=== PATIENT | female | born 1945 | race Caucasian/White ===

== ENCOUNTER 2018-01-03 03:02 | Inpatient (IN) | payer MEDICARE ==
[~2018-01-03] VITALS: Ht 157.5 cm; Wt 95.0 kg
[2018-01-03] VITALS (17 sets, daily range): BP systolic 110–174; BP diastolic 48–88
[~2018-01-03 03:02] MED LIST: ATRO2DRO OP; BUPR150T8 PO; CITA-278 PO; GLIP-126 PO; METF500T PO; NORT25CA5 PO; OMEP-84 PO; PRED5DRO7 RIGHTEYE; SIMV20TA5 PO; ZES5T PO; [UNRECOGNIZED DRUG - CODE] PO; [UNRECOGNIZED DRUG - CODE] RC
[2018-01-03] MEDS ORDERED: morphine 4 MG/ML inj SYRINge IV ONE (03:20)
[2018-01-03] MEDS ORDERED: ondansetron/PF 4mg/2ml inj IM ONE (03:20)
[2018-01-03] MEDS ORDERED: ondansetron/PF 4mg/2ml inj IV ONE (04:10)
[2018-01-03 04:21] LABS: BASOPHILS % (AUTO) 0.2 % (0-1); EOSINOPHILS # (AUTO) 0.1 X10'3 (0-0.9); EOSINOPHILS % (AUTO) 0.5 % (0-6); HEMATOCRIT 35.3 % (35.0-45.0); LYMPHOCYTES # (AUTO) 1.7 X10'3 (1.1-4.8); LYMPHOCYTES % (AUTO) 16.4 % (21-51); MEAN CORPUSCULAR HEMOGLOBIN 28.6 PG (27.0-31.0); MEAN CORPUSCULAR HGB CONC 34.1 % (33.0-36.5); MEAN CORPUSCULAR VOLUME 83.9 FL (78-98); MONOCYTES # (AUTO) 0.6 X10'3 (0-0.9); MONOCYTES % (AUTO) 5.8 % (2-12); NEUTROPHILS # (AUTO) 7.9 X10'3 (1.8-7.7); NEUTROPHILS % (AUTO) 77.1 % (42-75); PLATELET COUNT 288 X10'3 (140-440); RED BLOOD COUNT 4.21 X10'6 (4.20-5.60); WHITE BLOOD COUNT 10.2 X10'3 (4.5-11.0)
[2018-01-03] MEDS ORDERED: CLOP75TA35 PO (04:22)
[2018-01-03] MEDS ORDERED: BUPR100T16 PO (04:22)
[2018-01-03] MEDS ORDERED: NORT10CA2 PO (04:22)
[2018-01-03] MEDS ORDERED: LISI10TA4 PO (04:22)
[2018-01-03] MEDS ORDERED: VENL-191 PO (04:22)
[2018-01-03] MEDS ORDERED: ATOR40TA3 PO (04:22)
[2018-01-03] MEDS ORDERED: ALBU18HF2 INH (04:24)
[2018-01-03] MEDS ORDERED: AMYL1CAP62 (04:24)
[2018-01-03] MEDS ORDERED: GLIP5TAB13 (04:26)
[2018-01-03 04:28] LABS: PARTIAL THROMBOPLASTIN TIME 24 SECONDS (22-32)
[2018-01-03 04:31] LABS: ALANINE AMINOTRANSFERASE 28 U/L (12-78); ALBUMIN 2.9 G/DL (3.4-5.0); ALBUMIN/GLOBULIN RATIO 0.8 (1.1-1.5); ALKALINE PHOSPHATASE 152 IU/L (46-116); ANION GAP 12 (8-16); ASPARTATE AMINO TRANSFERASE 20 U/L (10-37); BILIRUBIN,TOTAL 0.4 MG/DL (0.1-1.0); BLOOD UREA NITROGEN 24 MG/DL (7-18); BUN/CREATININE RATIO 20.2 (6.6-38.0); CALCIUM 9.2 MG/DL (8.5-10.1); CHLORIDE 97 MMOL/L (99-107); CREATININE 1.19 MG/DL (0.40-0.90); GLUCOSE 387 MG/DL (70-104); POTASSIUM 3.6 MMOL/L (3.5-5.1); SODIUM 133 MMOL/L (135-145); TOTAL CARBON DIOXIDE 24.2 MMOL/L (24-32); TOTAL PROTEIN 6.6 G/DL (6.4-8.2); eGFR 44 ML/MIN
[2018-01-03] MEDS ORDERED: insulin regular, human 10 units/0.1 ml syringe IV ONE (04:40)
[2018-01-03] MEDS ORDERED: mag hydrox/Alum hydrox/simeth 30ml oral suspension PO PRN (05:10)
[2018-01-03] MEDS ORDERED: acetaminophen 325mg tablet PO PRN ×2 (05:10→14:40)
[2018-01-03] MEDS ORDERED: bisacodyl 10mg suppository rectal RC PRN ×2 (05:10→14:40)
[2018-01-03] MEDS ORDERED: ondansetron/PF 4mg/2ml inj IV PRN ×2 (05:10→14:50)
[2018-01-03] MEDS ORDERED: HYDROcodone/acetaminophen 5mg/325mg tablet PO PRN (05:10)
[2018-01-03] MEDS ORDERED: MESSAGE TO PHARMACY PO ONE (05:40)
[2018-01-03] MEDS ORDERED: dextrose 50%-water 50ml dispensing syringe IV PRN ×2 (05:40)
[2018-01-03] MEDS ORDERED: dextrose ORAL solution 15 GM/59 ML bottle PO PRN ×2 (05:40)
[2018-01-03] MEDS ORDERED: glucagon, human recombinant 1mg kit SUBCUT PRN (05:40)
[2018-01-03] MEDS: morphine 4 MG/ML inj SYRINge IV PRN (06:36)
[2018-01-03] MEDS ORDERED: atropine sulfate 1% ophthalmic drops EACHEYE SCH (08:00)
[2018-01-03] MEDS: atropine sulfate 1% ophthalmic drops RIGHTEYE SCH ×2 (08:00→20:00)
[2018-01-03 08:17] LABS: HEMOGLOBIN A1C 11.4 % (4.5-6.2)
[2018-01-03] MEDS: insulin Lispro (HumaLOG) vial - multi-dose SQ SCH ×2 (10:31→19:19)
[2018-01-03 11:08] LABS: CLARITY,URINE CLOUDY (Clear); COLOR,URINE YELLOW (Yellow); GLUCOSE, URINE >=1000 mg/dl (Neg); KETONES,URINE NEGATIVE (Neg); LEUKOCYTE ESTERASE ,URINE SMALL (Neg); NITRITES, URINE NEGATIVE (Neg); OCCULT BLOOD,URINE SMALL (Neg); PH,URINE 5.5 (4.8-8.0); PROTEIN,URINE 30 mg/dl (Neg); UROBILINOGEN,URINE 0.2 E.U/dL (0.2-1.0)
[2018-01-03] MEDS ORDERED: LIDOcaine 1%/PF (10mg/ml) 5ml vial ONE (11:12)
[2018-01-03 11:13] LABS: UA COLLECTION TYPE CLN CATCH MIDSTREAM
[2018-01-03 11:14] LABS: BACTERIA,URINE 4+ /HPF (Neg); MUCUS STRANDS FEW /LPF (Neg); RBC,URINE 0-2 /HPF (0-2); SQUAMOUS EPITHELIAL CELL,UR FEW /LPF (FEW); WBC,URINE 20-30 /HPF (0-4)
[2018-01-03 11:15] LABS: RENAL CELLS, URINE FEW /HPF
[2018-01-03] MEDS ORDERED: ceFAZolin 1GM/D5W- ADD-VANTAGE 50 ML IV ONE (11:50)
[2018-01-03] MEDS ORDERED: desflurane 240ml liquid inh. IH ONE (12:50)
[2018-01-03] MEDS ORDERED: midazolam 2 mg/2 ml injection ONE (13:07)
[2018-01-03] MEDS ORDERED: fentaNYL /PF 50mcg/ml 5ml ampule ONE (14:06)
[2018-01-03] MEDS ORDERED: LIDOcaine 2% (20mg/ml) 5ml vial ONE (14:06)
[2018-01-03] MEDS ORDERED: rocuronium 10mg/ml inj IV ONE (14:06)
[2018-01-03] MEDS ORDERED: ceFAZolin 1000mg inj ONE ×2 (14:06)
[2018-01-03] MEDS ORDERED: propofol inj 20 ML IV ONE (14:06)
[2018-01-03] MEDS ORDERED: ePHEDrine 50MG/ML INJ. ONE (14:07)
[2018-01-03] MEDS ORDERED: insulin regular, human vial - multi-dose ONE (14:14)
[2018-01-03] MEDS ORDERED: ondansetron/PF 4mg/2ml inj ONE (14:31)
[2018-01-03] MEDS ORDERED: albuterol 60 PUFF/8GM Inhaler IH ONE (14:31)
[2018-01-03] MEDS ORDERED: glycopyrrolate 0.2mg/ml inj ONE (14:31)
[2018-01-03] MEDS ORDERED: neostigmine methylsulfate 1 MG/ML 10ml vial ONE (14:31)
[2018-01-03] MEDS ORDERED: dexamethasone sod phosphate 4mg/ml inj. ONE (14:31)
[2018-01-03] MEDS ORDERED: diphenhydrAMINE 25mg capsule PO PRN (14:40)
[2018-01-03] MEDS ORDERED: magnesium hydroxide 30ml (MOM) UD suspension PO PRN (14:40)
[2018-01-03] MEDS ORDERED: ringers solution, lacted 1,000 ML IV SCH (14:46)
[2018-01-03] MEDS ORDERED: meperidine/PF 25mg/ml syringe IV PRN (14:50)
[2018-01-03] MEDS ORDERED: fentaNYL/PF 50MCG/1 ML 2ML syringe IV PRN ×2 (14:50)
[2018-01-03] MEDS ORDERED: proCHLORperazine 10 MG/2 ml inj IV PRN (14:50)
[2018-01-03] MEDS ORDERED: morphine 4 MG/ML inj SYRINge IV PRN ×2 (14:50)
[2018-01-03] MEDS ORDERED: acetaminophen 1,000mg/100ml IV 100 ML IV PRN (14:50)
[2018-01-03] MEDS ORDERED: albuterol 2.5 MG/3 ML nebule NEB ONE (14:50)
[2018-01-03] MEDS ORDERED: insulin regular, human 10 units/0.1 ml syringe SQ ONE (15:20)
[2018-01-03] MEDS ORDERED: oxyCODONE IR 5mg (immed. release) tablet PO PRN (15:40)
[2018-01-03] MEDS: oxyCODONE IR 5mg (immed. release) tablet PO PRN ×2 (15:55→23:15)
[2018-01-03] MEDS: ceFAZolin 1GM/D5W- ADD-VANTAGE 50 ML IV SCH ×2 (16:39→23:14)
[2018-01-03] MEDS: buPROPion 100mg tablet PO SCH (19:20)
[2018-01-03] MEDS: sennosides 8.6mg tablet PO SCH (20:58)
[2018-01-03] MEDS: nortriptyline 10mg capsule PO SCH (21:01)
[2018-01-03] MEDS: insulin glargine (Lantus) pen - multi-dose SQ SCH (21:22)
[2018-01-03] MEDS: albuterol 2.5 MG/3 ML nebule NEB PRN (23:51)
[2018-01-04 02:00] VITALS: BP 157/75
[2018-01-04] MEDS: albuterol 2.5 MG/3 ML nebule NEB PRN ×2 (04:32→20:27)
[2018-01-04 05:00] VITALS: BP 158/73
[2018-01-04 05:23] LABS: BASOPHILS % (AUTO) 0.1 % (0-1); EOSINOPHILS % (AUTO) 0 % (0-6); HEMATOCRIT 28.2 % (35.0-45.0); HEMOGLOBIN 9.6 g/dl (12.0-16.0); LYMPHOCYTES # (AUTO) 1.3 X10'3 (1.1-4.8); LYMPHOCYTES % (AUTO) 10.5 % (21-51); MEAN CORPUSCULAR HEMOGLOBIN 28.6 PG (27.0-31.0); MEAN CORPUSCULAR VOLUME 84.1 FL (78-98); MEAN PLATELET VOLUME 7.9 FL (7.4-10.4); MONOCYTES # (AUTO) 0.8 X10'3 (0-0.9); NEUTROPHILS # (AUTO) 10.4 X10'3 (1.8-7.7); NEUTROPHILS % (AUTO) 83.4 % (42-75); PLATELET COUNT 313 X10'3 (140-440); RED BLOOD COUNT 3.35 X10'6 (4.20-5.60); RED CELL DISTRIBUTION WIDTH 13.4 % (11.5-14.5); WHITE BLOOD COUNT 12.4 X10'3 (4.5-11.0)
[2018-01-04 06:08] LABS: ALANINE AMINOTRANSFERASE 20 U/L (12-78); ALBUMIN 2.6 G/DL (3.4-5.0); ALBUMIN/GLOBULIN RATIO 0.7 (1.1-1.5); ALKALINE PHOSPHATASE 119 IU/L (46-116); ANION GAP 11 (8-16); ASPARTATE AMINO TRANSFERASE 21 U/L (10-37); BILIRUBIN,TOTAL 0.3 MG/DL (0.1-1.0); BLOOD UREA NITROGEN 21 MG/DL (7-18); BUN/CREATININE RATIO 20.4 (6.6-38.0); CALCIUM 8.6 MG/DL (8.5-10.1); CHLORIDE 95 MMOL/L (99-107); CREATININE 1.03 MG/DL (0.40-0.90); GLUCOSE 252 MG/DL (70-104); POTASSIUM 3.4 MMOL/L (3.5-5.1); SODIUM 130 MMOL/L (135-145); TOTAL CARBON DIOXIDE 23.7 MMOL/L (24-32); TOTAL PROTEIN 6.1 G/DL (6.4-8.2); eGFR 53 ML/MIN
[2018-01-04] MEDS: oxyCODONE IR 5mg (immed. release) tablet PO PRN ×4 (06:14→20:36)
[2018-01-04] MEDS: atropine sulfate 1% ophthalmic drops RIGHTEYE SCH ×2 (08:00→20:00)
[2018-01-04] MEDS: insulin Lispro (HumaLOG) vial - multi-dose SQ SCH ×2 (09:23→14:16)
[2018-01-04] MEDS: venlafaxine 37.5mg tablet PO SCH (09:27)
[2018-01-04] MEDS: lisinopril 10 MG tablet PO SCH (09:27)
[2018-01-04] MEDS: buPROPion 100mg tablet PO SCH ×2 (09:27→20:37)
[2018-01-04] MEDS: atorvastatin 20mg tablet PO SCH (09:27)
[2018-01-04] MEDS: clopidogrel 75mg tablet PO SCH ×2 (09:27→11:47)
[2018-01-04] MEDS: enoxaparin 40mg/0.4ml syringe SQ SCH ×2 (09:28→11:47)
[2018-01-04] MEDS: morphine 4 MG/ML inj SYRINge IV PRN ×2 (09:29→23:29)
[2018-01-04 10:00] VITALS: BP 164/75
[2018-01-04] MEDS ORDERED: potassium Cl 40MEQ/NS 500ml 500 ML IV PRN ×2 (11:25)
[2018-01-04] MEDS ORDERED: magnesium/D5W IVPB 100 ML IV PRN (11:25)
[2018-01-04] MEDS ORDERED: magnesium 4gm in 100ml NS 100 ML IV PRN (11:25)
[2018-01-04] MEDS ORDERED: potassium Cl 20 mEq SR tablet PO PRN (11:25)
[2018-01-04] MEDS: potassium Cl 20 mEq SR tablet PO PRN ×3 (11:48→20:36)
[2018-01-04 14:00] VITALS: BP 143/59
[2018-01-04 16:23] LABS: BASOPHILS % (AUTO) 0.3 % (0-1); EOSINOPHILS % (AUTO) 0.2 % (0-6); HEMATOCRIT 27.2 % (35.0-45.0); HEMOGLOBIN 9.4 g/dl (12.0-16.0); LYMPHOCYTES % (AUTO) 22.2 % (21-51); MEAN CORPUSCULAR HEMOGLOBIN 29.1 PG (27.0-31.0); MEAN CORPUSCULAR HGB CONC 34.4 % (33.0-36.5); MEAN CORPUSCULAR VOLUME 84.5 FL (78-98); MEAN PLATELET VOLUME 7.9 FL (7.4-10.4); MONOCYTES # (AUTO) 0.6 X10'3 (0-0.9); NEUTROPHILS # (AUTO) 6.3 X10'3 (1.8-7.7); NEUTROPHILS % (AUTO) 70.3 % (42-75); PLATELET COUNT 310 X10'3 (140-440); RED BLOOD COUNT 3.22 X10'6 (4.20-5.60); RED CELL DISTRIBUTION WIDTH 13.4 % (11.5-14.5)
[2018-01-04] MEDS: CefTRIAXone/D5W-Rocephin 1gm 50 ML IV SCH (16:36)
[2018-01-04 18:00] VITALS: BP 156/57
[2018-01-04] MEDS: sennosides 8.6mg tablet PO SCH (20:37)
[2018-01-04] MEDS: nortriptyline 10mg capsule PO SCH (20:37)
[2018-01-04] MEDS: lactobacillus rhamnosus 10,000 MMU CELLS/CAPSULE PO SCH (20:37)
[2018-01-04] MEDS: insulin glargine (Lantus) pen - multi-dose SQ SCH (20:51)
[2018-01-04] MEDS: diphenhydrAMINE 25mg capsule PO PRN (21:16)
[2018-01-04 22:00] VITALS: BP 123/56
[2018-01-05 03:00] VITALS: BP 157/78
[2018-01-05] MEDS: oxyCODONE IR 5mg (immed. release) tablet PO PRN ×3 (05:43→17:23)
[2018-01-05 06:00] VITALS: BP 137/65
[2018-01-05 06:09] LABS: BASOPHILS % (AUTO) 0.2 % (0-1); EOSINOPHILS # (AUTO) 0.1 X10'3 (0-0.9); EOSINOPHILS % (AUTO) 1.4 % (0-6); HEMATOCRIT 26.9 % (35.0-45.0); HEMOGLOBIN 9.1 g/dl (12.0-16.0); LYMPHOCYTES # (AUTO) 2.8 X10'3 (1.1-4.8); LYMPHOCYTES % (AUTO) 27.4 % (21-51); MEAN CORPUSCULAR HEMOGLOBIN 28.6 PG (27.0-31.0); MEAN CORPUSCULAR HGB CONC 33.8 % (33.0-36.5); MEAN CORPUSCULAR VOLUME 84.6 FL (78-98); MEAN PLATELET VOLUME 8.3 FL (7.4-10.4); MONOCYTES # (AUTO) 0.8 X10'3 (0-0.9); MONOCYTES % (AUTO) 8.3 % (2-12); NEUTROPHILS # (AUTO) 6.4 X10'3 (1.8-7.7); NEUTROPHILS % (AUTO) 62.7 % (42-75); PLATELET COUNT 278 X10'3 (140-440); RED BLOOD COUNT 3.18 X10'6 (4.20-5.60); RED CELL DISTRIBUTION WIDTH 13.5 % (11.5-14.5); WHITE BLOOD COUNT 10.1 X10'3 (4.5-11.0)
[2018-01-05 06:40] LABS: ALANINE AMINOTRANSFERASE 14 U/L (12-78); ALBUMIN 2.3 G/DL (3.4-5.0); ALBUMIN/GLOBULIN RATIO 0.7 (1.1-1.5); ALKALINE PHOSPHATASE 115 IU/L (46-116); ANION GAP 9 (8-16); ASPARTATE AMINO TRANSFERASE 21 U/L (10-37); BILIRUBIN,TOTAL 0.3 MG/DL (0.1-1.0); BLOOD UREA NITROGEN 22 MG/DL (7-18); BUN/CREATININE RATIO 21.6 (6.6-38.0); CALCIUM 9.1 MG/DL (8.5-10.1); CHLORIDE 97 MMOL/L (99-107); CREATININE 1.02 MG/DL (0.40-0.90); GLUCOSE 247 MG/DL (70-104); MAGNESIUM 1.3 MG/DL (1.5-2.4); POTASSIUM 4.4 MMOL/L (3.5-5.1); SODIUM 130 MMOL/L (135-145); TOTAL CARBON DIOXIDE 24.5 MMOL/L (24-32); TOTAL PROTEIN 5.8 G/DL (6.4-8.2); eGFR 53 ML/MIN
[2018-01-05] MEDS: atropine sulfate 1% ophthalmic drops RIGHTEYE SCH ×2 (08:00→20:00)
[2018-01-05] MEDS: atorvastatin 20mg tablet PO SCH (08:06)
[2018-01-05] MEDS: lactobacillus rhamnosus 10,000 MMU CELLS/CAPSULE PO SCH ×2 (08:06→20:02)
[2018-01-05] MEDS: CefTRIAXone/D5W-Rocephin 1gm 50 ML IV SCH (08:06)
[2018-01-05] MEDS: clopidogrel 75mg tablet PO SCH (08:07)
[2018-01-05] MEDS: lisinopril 10 MG tablet PO SCH (08:07)
[2018-01-05] MEDS: venlafaxine 37.5mg tablet PO SCH (08:07)
[2018-01-05] MEDS: enoxaparin 40mg/0.4ml syringe SQ SCH (08:08)
[2018-01-05] MEDS: magnesium Cl slow-release 64mg tablet PO PRN (08:25)
[2018-01-05] MEDS: buPROPion 100mg tablet PO SCH ×2 (08:25→20:02)
[2018-01-05] MEDS: insulin Lispro (HumaLOG) vial - multi-dose SQ SCH ×3 (09:20→19:10)
[2018-01-05 10:00] VITALS: BP 124/52
[2018-01-05] MEDS: albuterol 2.5 MG/3 ML nebule NEB PRN (10:47)
[2018-01-05] MEDS: morphine 4 MG/ML inj SYRINge IV PRN (11:26)
[2018-01-05] MEDS: fluticasone nasal spray 16GM bottle NS SCH (13:57)
[2018-01-05] MEDS: benzocaine/menthol oral lozeng 1 EACH BOX MM PRN ×2 (13:57→20:03)
[2018-01-05 17:27] VITALS: BP 114/52
[2018-01-05] MEDS: sennosides 8.6mg tablet PO SCH (20:02)
[2018-01-05] MEDS: nortriptyline 10mg capsule PO SCH (20:02)
[2018-01-05] MEDS: insulin glargine (Lantus) pen - multi-dose SQ SCH (21:19)
[2018-01-05] MEDS: diphenhydrAMINE 25mg capsule PO PRN (21:21)
[2018-01-05 22:00] VITALS: BP 128/58
[2018-01-06 04:31] LABS: BASOPHILS % (AUTO) 0.3 % (0-1); EOSINOPHILS # (AUTO) 0.3 X10'3 (0-0.9); EOSINOPHILS % (AUTO) 2.5 % (0-6); HEMATOCRIT 25.8 % (35.0-45.0); HEMOGLOBIN 8.8 g/dl (12.0-16.0); LYMPHOCYTES # (AUTO) 2.9 X10'3 (1.1-4.8); LYMPHOCYTES % (AUTO) 27.4 % (21-51); MEAN CORPUSCULAR HEMOGLOBIN 28.7 PG (27.0-31.0); MEAN CORPUSCULAR HGB CONC 34.1 % (33.0-36.5); MEAN CORPUSCULAR VOLUME 84.1 FL (78-98); MONOCYTES # (AUTO) 0.9 X10'3 (0-0.9); MONOCYTES % (AUTO) 8.9 % (2-12); NEUTROPHILS # (AUTO) 6.4 X10'3 (1.8-7.7); NEUTROPHILS % (AUTO) 60.9 % (42-75); PLATELET COUNT 283 X10'3 (140-440); RED BLOOD COUNT 3.07 X10'6 (4.20-5.60); RED CELL DISTRIBUTION WIDTH 13.3 % (11.5-14.5); WHITE BLOOD COUNT 10.4 X10'3 (4.5-11.0)
[2018-01-06 04:58] LABS: ALANINE AMINOTRANSFERASE 18 U/L (12-78); ALBUMIN/GLOBULIN RATIO 0.6 (1.1-1.5); ALKALINE PHOSPHATASE 104 IU/L (46-116); ANION GAP 8 (8-16); ASPARTATE AMINO TRANSFERASE 24 U/L (10-37); BILIRUBIN,TOTAL 0.3 MG/DL (0.1-1.0); BLOOD UREA NITROGEN 24 MG/DL (7-18); BUN/CREATININE RATIO 20.7 (6.6-38.0); CALCIUM 8.7 MG/DL (8.5-10.1); CHLORIDE 96 MMOL/L (99-107); CREATININE 1.16 MG/DL (0.40-0.90); GLUCOSE 176 MG/DL (70-104); MAGNESIUM 1.4 MG/DL (1.5-2.4); POTASSIUM 4.3 MMOL/L (3.5-5.1); SODIUM 129 MMOL/L (135-145); TOTAL CARBON DIOXIDE 24.9 MMOL/L (24-32); TOTAL PROTEIN 5.6 G/DL (6.4-8.2); eGFR 46 ML/MIN
[2018-01-06] MEDS: magnesium Cl slow-release 64mg tablet PO PRN ×2 (05:12→13:28)
[2018-01-06 06:00] VITALS: BP 141/63
[2018-01-06] MEDS: atropine sulfate 1% ophthalmic drops RIGHTEYE SCH ×2 (08:00→20:00)
[2018-01-06] MEDS: normal saline 1000ml 1,000 ML IV SCH ×2 (08:16→15:25)
[2018-01-06] MEDS: fluticasone nasal spray 16GM bottle NS SCH (08:16)
[2018-01-06] MEDS: CefTRIAXone/D5W-Rocephin 1gm 50 ML IV SCH (08:16)
[2018-01-06] MEDS: venlafaxine 37.5mg tablet PO SCH (08:17)
[2018-01-06] MEDS: losartan 50mg tablet PO SCH (08:17)
[2018-01-06] MEDS: lactobacillus rhamnosus 10,000 MMU CELLS/CAPSULE PO SCH ×2 (08:17→19:09)
[2018-01-06] MEDS: clopidogrel 75mg tablet PO SCH (08:18)
[2018-01-06] MEDS: buPROPion 100mg tablet PO SCH ×2 (08:18→19:09)
[2018-01-06] MEDS: enoxaparin 40mg/0.4ml syringe SQ SCH (08:18)
[2018-01-06] MEDS: atorvastatin 20mg tablet PO SCH (08:18)
[2018-01-06] MEDS: insulin Lispro (HumaLOG) vial - multi-dose SQ SCH ×3 (08:30→19:08)
[2018-01-06 10:00] VITALS: BP 128/60
[2018-01-06] MEDS: oxyCODONE IR 5mg (immed. release) tablet PO PRN ×2 (11:57→21:05)
[2018-01-06] MEDS: albuterol 2.5 MG/3 ML nebule NEB PRN (12:02)
[2018-01-06 18:00] VITALS: BP 158/59
[2018-01-06] MEDS: nortriptyline 10mg capsule PO SCH (21:05)
[2018-01-06] MEDS: sennosides 8.6mg tablet PO SCH (21:06)
[2018-01-06] MEDS: insulin glargine (Lantus) pen - multi-dose SQ SCH (21:21)
[2018-01-06] MEDS ORDERED: diphenhydrAMINE 25mg capsule PO PRN (21:30)
[2018-01-06] MEDS: diphenhydrAMINE 25mg capsule PO PRN (21:39)
[2018-01-06 22:00] VITALS: BP 146/62
[2018-01-07] MEDS: benzocaine/menthol oral lozeng 1 EACH BOX MM PRN ×4 (00:04→21:19)
[2018-01-07] MEDS: oxyCODONE IR 5mg (immed. release) tablet PO PRN ×4 (05:09→21:03)
[2018-01-07 06:00] VITALS: BP 145/59
[2018-01-07 07:10] LABS: BASOPHILS # (AUTO) 0.1 X10'3 (0-0.2); BASOPHILS % (AUTO) 0.9 % (0-1); EOSINOPHILS # (AUTO) 0.2 X10'3 (0-0.9); EOSINOPHILS % (AUTO) 2.8 % (0-6); HEMATOCRIT 25.7 % (35.0-45.0); HEMOGLOBIN 8.8 g/dl (12.0-16.0); LYMPHOCYTES # (AUTO) 2.1 X10'3 (1.1-4.8); LYMPHOCYTES % (AUTO) 28.2 % (21-51); MEAN CORPUSCULAR HEMOGLOBIN 28.8 PG (27.0-31.0); MEAN CORPUSCULAR HGB CONC 34.3 % (33.0-36.5); MONOCYTES # (AUTO) 0.6 X10'3 (0-0.9); MONOCYTES % (AUTO) 8.5 % (2-12); NEUTROPHILS # (AUTO) 4.5 X10'3 (1.8-7.7); NEUTROPHILS % (AUTO) 59.6 % (42-75); PLATELET COUNT 340 X10'3 (140-440); RED BLOOD COUNT 3.06 X10'6 (4.20-5.60); RED CELL DISTRIBUTION WIDTH 13.2 % (11.5-14.5); WHITE BLOOD COUNT 7.5 X10'3 (4.5-11.0)
[2018-01-07 07:27] LABS: ALANINE AMINOTRANSFERASE 17 U/L (12-78); ALBUMIN 1.9 G/DL (3.4-5.0); ALBUMIN/GLOBULIN RATIO 0.5 (1.1-1.5); ALKALINE PHOSPHATASE 95 IU/L (46-116); ANION GAP 8 (8-16); ASPARTATE AMINO TRANSFERASE 29 U/L (10-37); BILIRUBIN,TOTAL 0.3 MG/DL (0.1-1.0); BLOOD UREA NITROGEN 22 MG/DL (7-18); BUN/CREATININE RATIO 20.8 (6.6-38.0); CHLORIDE 101 MMOL/L (99-107); CREATININE 1.06 MG/DL (0.40-0.90); GLUCOSE 121 MG/DL (70-104); MAGNESIUM 1.4 MG/DL (1.5-2.4); POTASSIUM 4.5 MMOL/L (3.5-5.1); SODIUM 133 MMOL/L (135-145); TOTAL CARBON DIOXIDE 23.9 MMOL/L (24-32); TOTAL PROTEIN 5.7 G/DL (6.4-8.2); eGFR 51 ML/MIN
[2018-01-07] MEDS: atropine sulfate 1% ophthalmic drops RIGHTEYE SCH ×2 (08:00→19:17)
[2018-01-07 08:20] VITALS: BP 151/60
[2018-01-07] MEDS: losartan 50mg tablet PO SCH (08:32)
[2018-01-07] MEDS: insulin Lispro (HumaLOG) vial - multi-dose SQ SCH ×3 (08:32→19:13)
[2018-01-07] MEDS: lactobacillus rhamnosus 10,000 MMU CELLS/CAPSULE PO SCH ×2 (08:32→19:13)
[2018-01-07] MEDS: CefTRIAXone/D5W-Rocephin 1gm 50 ML IV SCH (08:32)
[2018-01-07] MEDS: buPROPion 100mg tablet PO SCH ×2 (08:33→19:13)
[2018-01-07] MEDS: clopidogrel 75mg tablet PO SCH (08:33)
[2018-01-07] MEDS: venlafaxine 37.5mg tablet PO SCH (08:33)
[2018-01-07] MEDS: enoxaparin 40mg/0.4ml syringe SQ SCH (08:33)
[2018-01-07] MEDS: atorvastatin 20mg tablet PO SCH (08:33)
[2018-01-07] MEDS: fluticasone nasal spray 16GM bottle NS SCH (08:34)
[2018-01-07 10:00] VITALS: BP 124/60
[2018-01-07 18:00] VITALS: BP 149/53
[2018-01-07] MEDS: insulin glargine (Lantus) pen - multi-dose SQ SCH (21:01)
[2018-01-07] MEDS: nortriptyline 10mg capsule PO SCH (21:02)
[2018-01-07] MEDS: diphenhydrAMINE 25mg capsule PO PRN (21:03)
[2018-01-07] MEDS: sennosides 8.6mg tablet PO SCH (21:04)
[2018-01-08] MEDS: benzocaine/menthol oral lozeng 1 EACH BOX MM PRN ×3 (01:13→16:57)
[2018-01-08 02:00] VITALS: BP 127/59
[2018-01-08 05:00] VITALS: BP 162/65
[2018-01-08] MEDS: oxyCODONE IR 5mg (immed. release) tablet PO PRN ×3 (05:12→16:57)
[2018-01-08 05:41] LABS: BASOPHILS % (AUTO) 0.5 % (0-1); EOSINOPHILS # (AUTO) 0.2 X10'3 (0-0.9); EOSINOPHILS % (AUTO) 2.7 % (0-6); HEMATOCRIT 24.7 % (35.0-45.0); HEMOGLOBIN 8.5 g/dl (12.0-16.0); LYMPHOCYTES # (AUTO) 2.1 X10'3 (1.1-4.8); LYMPHOCYTES % (AUTO) 26.8 % (21-51); MEAN CORPUSCULAR HEMOGLOBIN 28.7 PG (27.0-31.0); MEAN CORPUSCULAR HGB CONC 34.3 % (33.0-36.5); MEAN CORPUSCULAR VOLUME 83.4 FL (78-98); MEAN PLATELET VOLUME 7.6 FL (7.4-10.4); MONOCYTES # (AUTO) 0.7 X10'3 (0-0.9); MONOCYTES % (AUTO) 8.6 % (2-12); NEUTROPHILS # (AUTO) 4.9 X10'3 (1.8-7.7); NEUTROPHILS % (AUTO) 61.4 % (42-75); PLATELET COUNT 354 X10'3 (140-440); RED BLOOD COUNT 2.96 X10'6 (4.20-5.60); RED CELL DISTRIBUTION WIDTH 13.8 % (11.5-14.5); WHITE BLOOD COUNT 7.9 X10'3 (4.5-11.0)
[2018-01-08 06:27] LABS: ALANINE AMINOTRANSFERASE 24 U/L (12-78); ALBUMIN 1.9 G/DL (3.4-5.0); ALBUMIN/GLOBULIN RATIO 0.5 (1.1-1.5); ALKALINE PHOSPHATASE 90 IU/L (46-116); ANION GAP 6 (8-16); ASPARTATE AMINO TRANSFERASE 24 U/L (10-37); BILIRUBIN,TOTAL 0.3 MG/DL (0.1-1.0); BLOOD UREA NITROGEN 20 MG/DL (7-18); BUN/CREATININE RATIO 21.3 (6.6-38.0); CALCIUM 9.1 MG/DL (8.5-10.1); CHLORIDE 99 MMOL/L (99-107); CREATININE 0.94 MG/DL (0.40-0.90); GLUCOSE 150 MG/DL (70-104); MAGNESIUM 1.4 MG/DL (1.5-2.4); POTASSIUM 4.8 MMOL/L (3.5-5.1); SODIUM 130 MMOL/L (135-145); TOTAL CARBON DIOXIDE 25.1 MMOL/L (24-32); TOTAL PROTEIN 5.6 G/DL (6.4-8.2); eGFR 58 ML/MIN
[2018-01-08] MEDS: atropine sulfate 1% ophthalmic drops RIGHTEYE SCH (08:00)
[2018-01-08] MEDS: CefTRIAXone/D5W-Rocephin 1gm 50 ML IV SCH (08:27)
[2018-01-08] MEDS: fluticasone nasal spray 16GM bottle NS SCH (08:27)
[2018-01-08] MEDS: losartan 50mg tablet PO SCH (08:28)
[2018-01-08] MEDS: clopidogrel 75mg tablet PO SCH (08:28)
[2018-01-08] MEDS: venlafaxine 37.5mg tablet PO SCH (08:28)
[2018-01-08] MEDS: lactobacillus rhamnosus 10,000 MMU CELLS/CAPSULE PO SCH (08:28)
[2018-01-08] MEDS: atorvastatin 20mg tablet PO SCH (08:28)
[2018-01-08] MEDS: enoxaparin 40mg/0.4ml syringe SQ SCH (08:29)
[2018-01-08] MEDS: buPROPion 100mg tablet PO SCH (08:29)
[2018-01-08 08:32] VITALS: BP 185/74
[2018-01-08] MEDS: insulin Lispro (HumaLOG) vial - multi-dose SQ SCH ×2 (08:32→14:15)
[2018-01-08 10:00] VITALS: BP 136/63
== END 2018-01-08 17:37 | DRG 481 ==
LOC: ER 03:03 → ED HOLD 05:08 → ORTHO 4S 08:07
PROVIDERS: ADMIT Emergency Medicine; ATTEND Emergency Medicine
PROC: 30233R1 Transfusion of Nonautologous Platelets into Peripheral Vein, Percutaneous Approach (ICD-10-PCS; 2018-01-03)
PROC: 0QSC04Z Reposition Left Lower Femur with Internal Fixation Device, Open Approach (ICD-10-PCS; principal; 2018-01-03 12:50)
DX: S72.455A Nondisplaced supracondylar fracture without intracondylar extension of lower end of left femur, initial encounter for closed fracture (principal); N39.0 Urinary tract infection, site not specified; D62 Acute posthemorrhagic anemia; M97.12XA Periprosthetic fracture around internal prosthetic left knee joint, initial encounter; E11.42 Type 2 diabetes mellitus with diabetic polyneuropathy; B96.20 Unspecified Escherichia coli [E. coli] as the cause of diseases classified elsewhere; F32.9 Major depressive disorder, single episode, unspecified; E78.5 Hyperlipidemia, unspecified; N18.9 Chronic kidney disease, unspecified; E11.22 Type 2 diabetes mellitus with diabetic chronic kidney disease; E11.65 Type 2 diabetes mellitus with hyperglycemia; J30.9 Allergic rhinitis, unspecified; E78.00 Pure hypercholesterolemia, unspecified; G89.29 Other chronic pain; I12.9 Hypertensive chronic kidney disease with stage 1 through stage 4 chronic kidney disease, or unspecified chronic kidney disease; Z96.652 Presence of left artificial knee joint; W01.0XXA Fall on same level from slipping, tripping and stumbling without subsequent striking against object, initial encounter; Z90.49 Acquired absence of other specified parts of digestive tract; Z90.710 Acquired absence of both cervix and uterus; Z79.02 Long term (current) use of antithrombotics/antiplatelets; Z79.899 Other long term (current) drug therapy; Z79.84 Long term (current) use of oral hypoglycemic drugs; Z87.11 Personal history of peptic ulcer disease; Z87.442 Personal history of urinary calculi; Z86.73 Personal history of transient ischemic attack (TIA), and cerebral infarction without residual deficits; Y92.89 Other specified places as the place of occurrence of the external cause; Y99.8 Other external cause status; Y93.89 Activity, other specified; Y92.009 Unspecified place in unspecified non-institutional (private) residence as the place of occurrence of the external cause
CPT/HCPCS: 36415; 71045; 73552; 73560; 73590; 76000; 80053; 81001; 82948; 83036; 83735; 84484; 85025; 85610; 85730; 86885; 86900; 86901; 87070; 87077; 87088; 87186; 93005; 94640; 94760; 96374; 96375; 97110; 97116; 97162; 97530; 99285; A4315; A6222; A6255; A6449; A6455; A7000; C1713; J0690; J0696; J1100; J1644; J1650; J1815; J2001; J2175; J2250; J2270; J2405; J2704; J2710; J3010; J3490; J7030; J7120; P9035; Q0163